=== PATIENT | female | born 1955 | race Caucasian/White ===

== ENCOUNTER → 2017-04-07 | Day surgery (SDC) | payer OTHER ==
[~2017-04-07] VITALS: Ht 162.6 cm; Wt 58.5 kg
[~2017-04-07] MED LIST: 0.9% Sodium Chloride 1,000 ML IV SCH; CALC-714 PO; CHOL200047 PO; LISI-567 PO; Sodium Chloride LOK Flush 10 mL Syringe IV PRN; fentaNYL-PF 50 mCg/mL 2 mL Inj IVPUSH PRN
[2017-04-07 10:19] VITALS: BP 142/87; PULSE 66; RESP 16; O2SAT 99
[2017-04-07] MEDS: 0.9% Sodium Chloride 1,000 ML IV SCH ×2 (10:36→10:45)
[2017-04-07 10:57] VITALS: BP 107/67; PULSE 60; RESP 14; O2SAT 100
[2017-04-07 11:09] VITALS: BP 105/67; PULSE 60; RESP 14; O2SAT 100
--- NOTE | 2017-04-07 11:36 | ENDO ---
[address] [address] ENDOSCOPY PROCEDURE PATIENT: PHOENIX NICHOLSON : 1955 MR#: [id number] ADMIT: 04/07/2017 JOB ID: [id number] DATE OF SERVICE: 04/07/2017 TYPE OF OPERATION: Colonoscopy. PREOPERATIVE DIAGNOSIS(ES): History of tubular adenoma polyps. POSTOPERATIVE DIAGNOSIS(ES): 1. Moderate sigmoid diverticulosis. 2. Small internal hemorrhoids. ANESTHESIA: Fentanyl 100 mcg, Versed 5 mg IV administered. COMPLICATIONS: None. BLOOD LOSS: Minimal. DESCRIPTION OF PROCEDURE: After risks and benefits explained to the patient and informed consent was obtained. After anesthesia administered, colonoscope was inserted from the rectum to the cecum. Mucosa carefully examined. Prep of the patient was excellent. After procedure was done, the scope withdrawn and procedure terminated. FINDINGS: Upon inspection of the anus, no masses, hemorrhoids, ulcers, or fissures that were seen throughout the entire examination. There was mild moderate sigmoid diverticulosis. There is no polyps or masses or lesions. Retroflexion showed small internal hemorrhoids. IMPRESSION: 1. Small internal hemorrhoids. 2. Moderate sigmoid diverticulosis. RECOMMENDATIONS: 1. High-fiber diet. 2. Repeat colonoscopy in five years for a history of tubular adenoma polyps.
== END | disposition home or self-care (01) ==
LOC: END 01:10
PROVIDERS: ATTEND Internal Medicine Gastroenterology
DX: Z12.11 Encounter for screening for malignant neoplasm of colon (principal); K57.30 Diverticulosis of large intestine without perforation or abscess without bleeding; K64.8 Other hemorrhoids; Z86.010 Personal history of colon polyps; Z80.0 Family history of malignant neoplasm of digestive organs
CPT/HCPCS: 45378; 99153; G0500; J2250; J3010; J7030